=== PATIENT | female | born 1975 | race Caucasian/White ===

== ENCOUNTER 2022-02-24 13:45 | Outpatient (CLI) | payer MEDICAID, SELFPAY ==
[2022-02-24 17:54] LABS: Chloride* 104 mmol/L (96-114)
[2022-02-24 17:55] LABS: Potassium* 4.4 mmol/L (3.6-5.1); Sodium* 138 mmol/L (135-149)
[2022-02-24 17:57] LABS: Creatinine* 0.6 mg/dL (0.5-1.5); Estimated Glomerular Filt Rate 112 ml/min
[2022-02-24 17:58] LABS: Blood Urea Nitrogen* 11 mg/dL (5-24); Calcium* 9.4 mg/dL (8.4-10.6); Carbon Dioxide* 26 mmol/L (20-32); Glucose* 94 mg/dL (60-115)
[2022-02-25 09:57] LABS: SARS PCR* Negative SARS-CoV-2 (Negative)
== END 2022-02-24 13:46 | disposition home or self-care (01) ==
PROVIDERS: Visit Provider Nurse Practitioner Family
DX: Z01.818 Encounter for other preprocedural examination (principal)
CPT/HCPCS: 80048; 87635

== ENCOUNTER 2022-11-28 15:52 | Outpatient (CLI) | payer MEDICAID, SELFPAY | END 2022-11-28 15:53 | disposition home or self-care (01) | LOC: LONREF 15:53 | PROVIDERS: PCP Family Medicine; Visit Provider Family Medicine | DX: I10 Essential (primary) hypertension (principal) | CPT/HCPCS: 80048 ==

== ENCOUNTER 2023-09-25 11:07 | Outpatient (CLI) | payer MEDICAID, SELFPAY | END 2023-09-25 11:08 | disposition home or self-care (01) | PROVIDERS: PCP Family Medicine; Visit Provider Family Medicine | DX: Z01.818 Encounter for other preprocedural examination (principal); I10 Essential (primary) hypertension; Z13.29 Encounter for screening for other suspected endocrine disorder | CPT/HCPCS: 80048; 84439; 84443 ==

== ENCOUNTER 2024-04-03 15:10 | Outpatient (CLI) | payer MEDICAID, SELFPAY ==
--- OUTSIDE RECORDS SUMMARY | 2024-04-04 05:34 | XMS_ITS | Clinical Summary ---
Author Organization [facility] Address [place], [place] [address] Care Team Providers Care Credit Professional Name Role Phone Elo Roberson MD Unavailable Unavailable Deisi Abbott MD Unavailable [phone] Manpreet Sarabia MD Primary Care Provider [phone] Allergies Active Allergy Reactions Criticality Noted Date Comments Amoxicillin Hives 08/25/2016 Meperidine Itching,Nausea And Vomiting 06/27/2007 Penicillins Hives 04/08/2022 Tolerates cefazolin Scopolamine Itching 02/28/2022 Pt had bilateral eye burning ,not sure if it was from this but pain improved when patch was removed Varenicline Other - Describe In Comment Field 04/08/2022 nightmares Medications Medication Sig Dispensed Refills Start Date End Date Status diphenhydrAMINE (BENADRYL) 25 mg capsule Take 25 mg by mouth at bedtime if needed. Active clobetasol 0.05% TOPICAL (TEMOVATE) 0.05 % external solution Apply topically to affected area(s) 2 times daily if needed. Active dextroamphetamine-am phetamine (ADDERALL XR) 30 mg Extended-Release capsule Take 30 mg by mouth once daily. Q AM Active loratadine (Claritin) 10 mg tablet Take 10 mg by mouth once daily. Active acetaminophen (TYLENOL) 325 mg tabletIndications:St atus post total hip replacement, left Take 3 Tablets (975 mg) by mouth every 6 hours. Max acetaminophen dose: 4000mg in 24 hrs. 100 Tablet 1 3 Active acetaminophen/diphen hydramine (TYLENOL PM ORAL) Take 2 Tablets by mouth at bedtime. Active biotin 1 mg cap Take 1 Capsule (1,000 mcg) by mouth once daily. 0 3 Active medication order composer Take by mouth once daily. Women's multivitamin. 0 3 Active medication order composer Take by mouth once daily. Vitamin D3 gummy. 0 3 Active clindamycin (CLEOCIN) 300 mg capsuleIndications:A ftercare following surgery of the musculoskeletal system Take 2 tabs by mouth 1 hour prior to dental cleaning/procedur e or colonoscopy. 2 Capsule 3 3 Active furosemide (LASIX) 20 mg tablet Take 20 mg by mouth every morning. 3 Active Cosentyx, 2 Syringes, 150 mg/mL syringe Inject 300 mg subcutaneous every 4 weeks. 4 Active goserelin acetate (GOSERELIN SUBQ) Inject 3.6 mg subcutaneous every 12 weeks. Active tamoxifen (NOLVADEX) 10 mg tabletIndications:Ma lignant neoplasm of upper-outer quadrant of left breast in female, estrogen receptor positive (HC) TAKE ONE TABLET BY MOUTH DAILY 90 Tablet 3 4 Active celecoxib (CeleBREX) 200 mg capsuleIndications:P soriatic arthritis (HC) Take 1 Capsule (200 mg) by mouth two times daily with meals. 90 Capsule 1 4 Active oxybutynin XL (DITROPAN XL) 10 mg CR tabletIndications:Ho t flashes Take 1 Tablet (10 mg) by mouth once daily. For hot flashes 90 Tablet 1 4 Active rOPINIRole (REQUIP) 2 mg tabletIndications:Re stless legs Take 1 Tablet (2 mg) by mouth at bedtime. Restless Legs 90 Tablet 1 4 Active furosemide (Lasix) 20 mg tabletIndications:Ma lignant neoplasm of upper-outer quadrant of left breast in female, estrogen receptor positive (HC) Take 1 Tablet (20 mg) by mouth two times daily. 60 Tablet 1 4 Active anastrozole (ARIMIDEX) 1 mg tabletIndications:Ma lignant neoplasm of upper-outer quadrant of left breast in female, estrogen receptor positive (HC) Take 1 Tablet (1 mg) by mouth once daily. 90 Tablet 3 4 Active oxyCODONE-acetaminop hen (PERCOCET) 5-325 mg per tabletIndications:S/ P right knee arthroscopy Take 1-2 Tablets by mouth every 4 hours if needed for Pain. Max acetaminophen dose: 4000mg in 24 hrs. 30 Tablet 4 03/08/20 24 Discontinu ed(*Med complete/R egimen complete/L evel of care change) ondansetron (ZOFRAN ODT) 4 mg disintegrating tabletIndications:S/ P right knee arthroscopy Place 1 Tablet (4 mg) on the tongue every 8 hours if needed for Nausea/Vomiting. 30 Tablet 4 03/08/20 24 Discontinu ed(*Med complete/R egimen complete/L evel of care change) docusate (COLACE) 100 mg capsuleIndications:S /P right knee arthroscopy Take 1 Capsule (100 mg) by mouth 2 times daily if needed for Constipation. 30 Capsule 4 03/08/20 24 Discontinu ed(*Med complete/R egimen complete/L evel of care change) Active Problems Problem Noted Date Diagnosed Date S/P right knee arthroscopy 01/19/2024 Tear of medial meniscus of right knee 09/19/2023 s/p left total hip arthropla sty DOS: 12/16/[address] Snow 12/27/2022 Arthritis of left hip 12/16/2022 Medical cannabis use 04/26/2022 Psoriatic arthritis 04/08/2022 ADHD 04/08/2022 Hyponatremia 04/08/2022 Hypokalemia 04/08/2022 Cellulitis of chest wall 04/08/2022 Leucocytosis 04/08/2022 Port-A-Cath in place 04/08/2022 Constipation 04/08/2022 Restless legs 04/08/2022 Malignant neoplasm of upper- outer quadrant of left breast in female, estrogen receptor positive 02/03/2022 Cancer Staging:Clinical:Stage IA(cT1c, cN0, cM0, G2, ER+, IL+, HER2-) - Signed by Elo Roberson MD on 02/03/2022 Pathologic:Stage IA(pT1c, pN0, cM0, G3, ER+, IL+, HER2-) - Signed by Tequila Deng PA on 03/08/2022 Encounters Date Type Department Care Team Description 04/02/2024 Hospital/[facility] Telephone Encounter [facility] [place] [address] [place] [address] Zelda West RN Pre Procedure 03/08/2024 10:00 AM CDT - 03/08/2024 11:59 PM CDT Hospital Encounter [facility] [place] [address] [place] [address] Malignant neoplasm of upper-outer quadrant of left breast in female, estrogen receptor positive (HC) (Primary Dx) 03/08/2024 9:40 AM CDT Office Visit [facility] [place] [address] [address] Deisi Abbott MD Follow Up (Zoladex/) 03/08/2024 Travel 03/07/2024 [facility] Telephone Encounter [facility] [place] [address], [place] [address] Susanne Darby RN Pre Procedure (PVP) 01/22/2024 8:51 AM CDT - 01/22/2024 11:59 PM CDT Hospital Encounter [facility] [place] [address] [address] Visit for screening mammogram 01/22/2024 Travel 01/19/2024 1:00 PM CDT Office Visit [facility] [address] [place] [address] Dameon Morelos MD Surgical Followup (S/P right knee scope) 01/19/2024 Travel 01/09/2024 Refill [facility] [place] [address] [address] Alecia Aguiar, LEO Follow Up from Last 3 Months Family History Medical History Relation Name Comments Cancer-breast Paternal Aunt 1 Cancer-breast Paternal Aunt 2 breast Cancer-colon No Family History Cancer-ovarian No Family History Cancer-prostate No Family History Relation Name Status Comments Brother 1 Alive Brother 2 Alive Brother 3 Alive Father Alive Mother Alive Paternal Aunt 1 Paternal Aunt 2 Alive Social History Tobacco Use Types Packs/Day Years Used Date Smoking Tobacco: Former Cigarettes 0.5 15 0 12/12/2006 - 12/12/2021 Passive Smoke Exposure: Past Smokeless Tobacco: Never Tobacco Cessation:Counseling Given: Not Answered Alcohol Use Standard Drinks/Week Comments Yes 0 (1 standard drink = 0.6 oz pur e alcohol) 1 drink a month Social Connections Answer Date Recorded Frequency of Communication with Friends and Fami ly Not on file 03/10/2022 Sex and Gender Information Value Date Recorded Sex Assigned at Not on file Gender Identity Not on file Sexual Orientation Not on file Obstetrics History Para Term AB IAB SAB Ectopic Multiple Livin g Live Births 2 2 Date Outcome GA Total Labor Labor/2nd/3rd Weight Sex Type Anes PTL Shanta A1 A5 Name Clin Para Para Last Filed Vital Signs Vital Sign Reading Time Taken Comments Blood Pressure 132/73 03/08/2024 9:46 AM CDT Pulse 80 03/08/2024 9:46 AM CDT Temperature 36.9 ??C (98.4 ??F) 03/08/2024 9:46 AM CD T Respiratory Rate 16 12/15/2023 8:17 AM CDT Oxygen Saturation 100% 03/08/2024 9:46 AM CDT Inhaled Oxygen Concentration - - Weight 88.2 kg (194 lb 6.4 oz) 03/08/2024 9:46 A M CDT Height 162.6 cm (5' 4) 03/08/2024 9:46 AM CDT Body Mass Index 33.37 03/08/2024 9:46 AM CDT Plan of Treatment Upcoming Encounters Date Type Department Care Team (Late st Contact Info) Description 04/05/2024 8:00 AM CDT Appointment [facility] [address] [place] [address] 05/03/2024 8:00 AM CDT Appointment [facility] [address] [place] [address] 05/31/2024 8:20 AM CDT Office Visit [facility] [place] [address] [facility] [address] [place] [address] Deisi Abbott MD [address] [facility] [address], [id number] [place] [address] 05/31/2024 8:45 AM CDT Appointment [facility] [place] [address] [place] [address] Health Maintenance Due Date Last Done Comments COVID-19 vaccine series (#1) 1980 Pneumococcal series for age 6-64 (1 of 2 - PCV) 1981 Tdap 1986 Depression screening for age 12+ 1987 HIV for age 15-65 1990 Hepatitis C screening for ag e 18-79 1993 Tetanus booster 1995 Pap test for age 21-65 1996 Colonoscopy through age 75 2020 Lipids for age 45-75 2020 Influenza for age 9-49 04/14/2024 Mammogram for age 45-75 01/21/2025 01/22/20 24, 01/18/2023, 09/19/2022 BMI (ht and wt on same day) for age 18+ 03/08/2025 03/08/2024, 12/15/2023, 09/22/2023, Additional history exists Medical Devices Implanted Type Area Farm Loan Representative Device Identifier Shelf Expiration Date Model / Serial / Lot Port 8fr Powerport Clearvue Isp Micro Intrdcr - [id number] Implanted:Qty: 1 on 04/01/2022 by Daniel Johnson MD at [facility] Right: Chest [employer] 03/12/2023 [id number] / / [id number] Shell Hip 48d Trident Ii Clusterhole Tritanium - [id number] Implanted:Qty: 1 on 12/16/2022 by Dell Snow MD at [facility] Left: Hip [employer] 10/24/2027 [id number] / / [id number] Mdm Liner Cementless 38 Mm D Implanted:Qty: 1 on 12/16/2022 by Dell Snow MD at [facility] Left: Hip [employer] 08/22/2027 [id number] / / [id number] Screw Hip 6.5x30mm [employer] Low Profile Hex - [id number] Implanted:Qty: 1 on 12/16/2022 by Dell Snow MD at [facility] Left: Hip [employer] 11/21/2027 [id number] / / [id number] Inbsignia Hip Stem Offset Size 3 36 Mm; 101mm High Implanted:Qty: 1 on 12/16/2022 by Dell Sonw MD at [facility] Left: Hip [employer] 09/13/2027 [id number] / / [id number] Head Hip Od22mm +0 V40 Co Cr - [id number] Implanted:Qty: 1 on 12/16/2022 by Dell Snow MD at [facility] Left: Hip [employer] 11/05/2027 [id number] / / [id number] Insert Acetab Mdm X3 Sz D Trident Ii - [id number] Implanted:Qty: 1 on 12/16/2022 by Dell Snow MD at [facility] Left: Hip [employer] 03/27/2027 [id number] / / [id number] Procedures Procedure Name Priority Date/Time Associated Diagnosis Comments XR MAMMO SIVAN BILAT SCREEN Routine 01/22/2024 9:07 AM CDT Visit for screening mammogram from Last 3 Months Results * XR MAMMO SIVAN BILAT SCREEN (01/22/2024 9:07 AM CDT) Anatomical Region Laterality Modality BREASTS, Breast Left, Breast Right Bilateral Mammography Impressions 01/22/2024 9:48 AM CDT ??There is no radiographic evidence for malignancy. ??Recommend annual mammograms. MAMMOGRAM ASSESSMENT: ??ACR 2 Benign PATIENTS: You will also receive a letter with your examination results in an easy to read format. ??If you have questions about your results, please contact your referring provider. Narrative 01/22/2024 9:48 AM CDT For Patients: As a result of the 21st Century Cures Act, medical imaging exams and procedure reports are released immediately into your electronic medical record. You may view this report before your referring provider. If you have questions, please contact your health care provider. XR MAMMO SIVAN BILAT SCREEN [[id number]] CLINICAL HISTORY: ??This is an asymptomatic 48 y.o. patient. INDICATION FOR EXAM: Mammogram Screening. TECHNIQUE: CC & MLO views were obtained. ??This study was evaluated with the assistance of Computer-Aided Detection. Breast Tomosynthesis was used in interpretation. COMPARISON FILMS: Yes 01/18/23 [facility] 01/25/22 [facility] FINDINGS: ??The breasts are heterogeneously dense, which may obscure small masses. ??No suspicious masses or microcalcifications. ??There are post treatment changes of left breast. Manpreet Sarabia MD MAMMO from Last 3 Months Insurance Payer Benefit Plan / Group Subscriber ID Effective Dates Phone Address Type [facility] [place] CARE [id number] 2023-Presen t [address] [place] [address] COSMETIC PROCEDURES COSMETIC PROCEDURE HB ONLY [id number] Effective for all dates [address] [facility]. [facility]N: [facility] [id number] Advance Directives * Full Code (Latest Code Status on File) Date Activated Date Inactivated Comments 10/04/2023 12:04 PM 10/04/2023 7:48 PM Question Answer Comments Code Status Discussion: Unable to Assess Preferences, Provider to review later * Full Code Date Activated Date Inactivated Comments 12/16/2022 8:16 AM 12/16/2022 6:27 PM Question Answer Comments Code Status Discussion: Not Discussed * Full Code Date Activated Date Inactivated Comments 05/27/2022 1:30 PM 05/27/2022 7:34 PM Question Answer Comments Code Status Discussion: Reviewed Preferences * Full Code Date Activated Date Inactivated Comments 04/08/2022 9:25 PM 04/11/2022 4:16 PM Question Answer Comments Code Status Discussion: Reviewed Preferences * Full Code Date Activated Date Inactivated Comments 04/01/2022 6:15 AM 04/01/2022 2:20 PM Question Answer Comments Code Status Discussion: Unable to Assess Preferences, Provider to review later Care Teams Credit Professional Relationship Specialty Start Date End Date Manpreet Sarabia MD [address] [place] [address] PCP - General Family Practice 06/30/23 Elo Roberson MD Surgery - General 03/03/22 Deisi Abbott MD [address] [id number], [id number] [place] [address] Medical Oncologist Oncology 06/06/22
--- OUTSIDE RECORDS SUMMARY | 2024-04-04 05:35 | XMS_ITS | Clinical Summary ---
Author Organization [place] Address [address] [place] [id number] Care Team Providers Care [employer] Name Role Phone Anderson Sarabia MD Primary Care Provider Allergies Active Allergy Reactions Criticality Noted Date Comments Amoxicillin Hives 08/25/2016 Meperidine Dermatitis 08/25/2016 Medications Medication Sig Dispensed Refills Start Date End Date Status amphetamine-dextroamphetamine (ADDERALL XR) 30 MG per 24 hr capsule 10/25/2014 Active clobetasol propionate 0.05 % FOAM 10/15/2014 Active clobetasol (TEMOVATE) 0.05 % external solution 10/15/2014 Active Social History Tobacco Use Types Packs/Day Years Used Date Smoking Tobacco: Never Assessed Adolescent Education Answer Date Record ed Getting School Help Needed Not on file 05/21 Sex and Gender Information Value Date Recorded Sex Assigned at Not on file Gender Identity Not on file Sexual Orientation Not on file Last Filed Vital Signs Vital Sign Reading Time Taken Comments Blood Pressure 136/87 08/25/2016 2:36 PM CLINICAL IMMUNOLOGIST Pulse 107 08/25/2016 2:36 PM CLINICAL IMMUNOLOGIST Temperature 36.9 ??C (98.4 ??F) 08/25/2016 2:36 PM CS T Respiratory Rate - - Oxygen Saturation - - Inhaled Oxygen Concentration - - Weight 86.2 kg (190 lb) 08/25/2016 2:36 PM CLINICAL IMMUNOLOGIST Height - - Body Mass Index - - Plan of Treatment Health Maintenance Due Date Last Done Comments ADVANCE CARE PLANNING 1975 ANNUAL REVIEW OF HM ORDERS 1975 CT COLONOGRAPHY 1975 FIT 1975 FLEX SIG 1975 GLUCOSE 1975 MAMMO SCREENING 1975 YEARLY PREVENTIVE VISIT 1975 sDNA (Cologuard) 1975 COLONOSCOPY 1985 COLORECTAL CANCER SCREENING 1985 HIV SCREENING 1990 HEPATITIS C SCREENING 1993 HEPATITIS B IMMUNIZATION (1 of 3 - 19+ 3-dose series) 1994 PAP 1996 LIPID 2015 COVID-19 Vaccine ( - season) 2023 PHQ-2 (once per calendar year) 2023 INFLUENZA VACCINE (#1) 2024 , 07/15/2015, 06/20/2008, Additional history exists DTAP/TDAP/TD IMMUNIZATION (3 - Td or Tdap) 11/25/2031 11/24/2021, 08/05/2008 Pneumococcal Vaccine: Pediatrics (0 to 5 Years) and At-Risk Patients (6 to 64 Years) Aged Out 07/15/2015 No longer eligible based on patient's age to complete this topic HPV IMMUNIZATION Aged Out No longer e ligible based on patient's age to complete this topic IPV IMMUNIZATION Aged Out No longer e ligible based on patient's age to complete this topic MENINGITIS IMMUNIZATION Aged Out No l onger eligible based on patient's age to complete this topic RSV MONOCLONAL ANTIBODY Aged Out No l onger eligible based on patient's age to complete this topic Care Teams [employer] Relationship Specialty Start Date End Date Anderson Sarabia MD PCP - General Family Medicine 05/12/22
--- OUTSIDE RECORDS SUMMARY | 2024-04-04 05:35 | XMS_ITS | Data Portability ---
Author Organization [facility], [id number] Address [address] [address] Care Team Providers Care Tube Closing Machine Operator Name Role Phone BERKLEY PARIKH Primary Care Provider Assessment Encounter Date Assessment Date Assessment LastModified by Organization Details LastModified Time 11/12/2020 11/12/2020 45 yo female here for IUD exchange and annual exam - Encouraged breast self-awareness and recommend yearly mammogram. Last 2018 normal per patient. - Encouraged regular exercise. - Calcium and vitamin D intake discussed - pap smear: 2013 NILM, rpt done today. Has history of LSIL 2012 - colonoscopy @ 50 yo - contraception: IUD, exchanged today -menopausal symptoms- mild - has not had labwork done recently, completed today. - desires flu shot, had covid in 06/2020. [email or web address] Not available 11/17/2020 16:46:55 04/19/2022 04/19/2022 I spent a total of 30 minutes providing care for this patient including: preparing to see the patient, obtaining a medical history, completing a medically appropriate physical exam, completing documentation of visit information and plans in the EMR, counseling the patient and/or caregiver regarding her diagnosis, treatment options and follow up plans, as well as any necessary communication of subsequent test results to the patient, counseling the patient and/or caregiver regarding health maintenance recommendations, reviewing medical records, rosa Not available 04/20/2022 09:06:41 Plan of Treatment Reminders Order Date Submit Date Provider Last Modified By Organization Details Last Modified Time Details Appointments None recorded. Lab lipid panel, blood 2020 021 [facility], [address] [place], [address], 10:17:23 hemoglobin (Hb), fingerstick , blood 2020 021 [email or web address] [email or web address] [facility] , [address], [address], [place], [address], 18:00:21 thyroid cascade, serum 2020 [facility], [address] [place] [place], [address], 00:27:15 test, urine 2020 [email or web address] [email or web address] [facility] , [address] [place] [address], [address], [place], [address], 16:48:20 pap, LB 2020 021 [facility], [place] [place], [address], 10:17:25 unlisted lab - HPV high risk DNA with 16/18 genotyping 2020 021 [facility], [address] [place], [address], 10:17:25 FSH (follicle-s timulating hormone), serum 2020 021 [facility], [place] [place], [address], 10:17:24 prolactin, serum 2020 021 [facility], [place], [address], 00:27:15 CMP, serum or plasma 2020 021 [facility], [address] [place], [address], 00:27:14 hemoglobin A1c + average glucose, QN, blood 2020 021 [facility], [address] [place], [address], 10:17:24 Referral None recorded. Procedures None recorded. Surgeries None recorded. Imaging None recorded. Medication Orders None recorded. Patient TargetsNo targets recorded. Patient Instructions Encounter Date Encounter Id Patient Instructions Last Modified By Organization Details Last Modified Time 11/12/2020 [id number] 1. S/S of infection reviewed 2. Call for abdominal pain, fever, chills, or heavy bleeding 3. No unprotected x 1 week 4. Expect irregular bleeding 3-6 months 5. Handouts provided 6. RTC in one month for IUD string check or sooner/prn [email or web address] Not available 11/12/2020 16:58:22 Reason for Referral None Reported. Results Created Date Observation Date Name Description Value Unit Range Abnormal Flag LastModifiedBy Organization Detail LastModifiedTime 11/12/2020 hemog lobin (Hb), finge rstic k, blood fingerstick hemoglobin 14.5 g/dL 12.0-1 5.0 Not Available [id number] le_[address], [place], [address], 11/12/2020 16:01:20 11/13/1911/12/2020 CMP, serum or plasm a sodium 138 mmol/ L 136-14 5 Not Available [facility] [address] [place], [address], 11/13/2020 00:27:14 0411/12/2020 CMP, serum or plasm a potassium 4.2 mmol/ L 3.5-5. 1 Not Available [facility] [address], [address], 11/13/2020 00:27:14 11/13/1911/12/2020 CMP, serum or plasm a chloride 107 mmol/ L 98-112 Not Available [facility] [place], [address], 11/13/2020 00:27:14 11/13/1911/12/2020 CMP, serum or plasm a carbon dioxide 27 mmol/ L 21-32 Not Available [place] [address] [place], [address], 11/13/2020 00:27:14 11/13/1911/12/2020 CMP, serum or plasm a BUN (urea nitro) 9 mg/dL 7-24 Not Available [facility] [address] [place], [address], 11/13/2020 00:27:14 11/13/1911/12/2020 CMP, serum or plasm a creatinine 0.55 mg/dL 0.55-1 .02 Not Available [place] [address] [place] [place], [address], 11/13/2020 00:27:14 11/13/1911/12/2020 CMP, serum or plasm a est GFR (CKD-epi) >60 mL/mi n >60 Not Available [facility] [address] [place], [address], 11/13/2020 00:27:14 11/13/1911/12/2020 CMP, serum or plasm a est GFR if AM >60 mL/mi n >60 Not Available [place] [address] [address] [place], [place], [address], 11/13/2020 00:27:14 11/13/1911/12/2020 CMP, serum or plasm a glucose 97 mg/dL 74-106 Not Available [facility] [place], [address], 11/13/2020 00:27:14 11/13/1911/12/2020 CMP, serum or plasm a calcium, serum 8.6 mg/dL 8.5-10 .1 Not Available [facility] [address] [place], [address], 11/13/2020 00:27:14 11/13/1911/12/2020 CMP, serum or plasm a anion gap 4.0 mmol/ L 0.0-15 .0 Not Available [facility] [place], [address], 11/13/2020 00:27:14 11/13/1911/12/2020 CMP, serum or plasm a albumin 3.6 g/dL 3.4-5. 0 Not Available [place] [address] [place], [address], 11/13/2020 00:27:14 11/13/1911/12/2020 CMP, serum or plasm a bilirubin-to annette 0.4 mg/dL 0.2-1. 0 Not Available [facility] [place], [address], 11/13/2020 00:27:14 11/13/1911/12/2020 CMP, serum or plasm a alkaline P'tase 94 IU/L 45-117 Not Available [facility] [place], [address], 11/13/2020 00:27:14 11/13/19 21 11/12/2020 CMP, serum or plasm a protein total 6.7 g/dL 6.4-8. 2 Not Available [place] [address] [address] [place], [address], 11/13/2020 00:27:14 11/13/19 21 11/12/2020 CMP, serum or plasm a AST (SGOT) 8 IU/L 12-37 low Not Available [place] [address] [address] [place], [address], 11/13/2020 00:27:14 11/13/19 21 11/12/2020 CMP, serum or plasm a ALT (SGPT) 20 IU/L 12-68 Not Available [place] [address] [address] [place], [address], 11/13/2020 00:27:14 11/13/19 21 11/12/2020 prola ctin, serum prolactin, serum 7.6 NG/mL Not Available [place] [address] [place] [place], [address], 11/13/2020 00:27:15 11/13/19 21 11/12/2020 thyro id casca de, serum TSH 0.669 uIU/m L 0.358- 3.740 Not Available [place] [address] [address] [place], [address], 11/13/2020 00:27:15 11/13/19 21 11/12/2020 lipid panel , blood specimen type Not Available [place] [address] [address] [place], [address], 11/23/2020 10:17:23 11/13/19 21 11/12/2020 lipid panel , blood cholesterol 154 mg/dL <200 Not Available [place] [address] [place], [address], 11/23/2020 10:17:23 11/13/19 21 11/12/2020 lipid panel , blood triglyceride s profile 91 mg/dL <150 Not Available [place] [address] [address] [place] [place], [address], 11/23/2020 10:17:23 11/13/19 21 11/12/2020 lipid panel , blood LDL chol, calc 99 mg/dL <100 Not Available [facility] [address] [place], [address], 11/23/2020 10:17:23 11/13/19 21 11/12/2020 lipid panel , blood HDL cholesterol 37 mg/dL >40 low Not Available [facility] [place], [address], 11/23/2020 10:17:23 11/13/19 21 11/12/2020 lipid panel , blood chol/HDL ratio 4.2 0.0-4. 9 Not Available [facility] [place], [address], 11/23/2020 10:17:23 11/13/19 21 11/12/2020 FSH (foll icle- stimu latin g hormo ne), serum FSH, serum 4.8 mIU/m L Not Available [facility] [place], [address], 11/23/2020 10:17:24 11/13/19 21 11/12/2020 hemog lobin A1c + avera ge gluco se, QN, blood HbA1C (glycosolate d HGB) 5.2 % <5.7 Not Available [facility] [place], [address], 11/23/2020 10:17:24 11/13/19 21 11/12/2020 hemog lobin A1c + avera ge gluco se, QN, blood EAG (est. average glucose) 103 mg/dL <117 Not Available [facility] [address], [place], [address], 11/23/2020 10:17:24 11/13/19 21 11/12/2020 HPV DNA, high- risk HPV high risk type 16 Negati ve for HPV type 16. negati ve for HPV type 16. Not Available [facility] [address], [place], [address], 11/23/2020 10:17:25 11/13/19 21 11/12/2020 HPV DNA, high- risk HPV high risk type 18 Negati ve for HPV type 18. negati ve for HPV type 18. Not Available [facility] [address], [place], [address], 11/23/2020 10:17:25 11/13/19 21 11/12/2020 HPV DNA, high- risk HPV other high risk types Negati ve for other high risk HPV types. negati ve for other high risk HPV types. Not Available [facility] [address], [place], [address], 11/23/2020 10:17:25 11/13/19 21 11/12/2020 pap, LB case report See note Not Available [facility] [address], [place], [address], 11/23/2020 10:17:25 11/13/19 21 11/12/2020 pregn donna test, urine Unknown Analyte negati ve Not Available [id number] le_[address], [place], [address], 11/12/2020 16:33:25 Result Notes None recorded. Problems Name Status Onset Date Resolution Date Notes Provider Name and Address Organization Details Recorded Time Invasive carcinoma of breast Active Left Breast Jacki Mejia (TERMED) null, [facility] DEICER FINISHER 04/19/2022 09:52:56 Problem Notes None recorded. Procedures Surgical History Date Name Laterality Status Provider Name and Address Organization Details Recorded Time 04/19/20 22 IUD Removal Procedure Note ([place]) [place] [address] [address], [place], [address], [facility] 04/19/2022 13:10:56 11/13/19 21 IUD Removal & Insertion (same day) Procedure Note (Premier) [place] [address] [facility],[address], [place], [address], [facility] DEICER FINISHER 11/12/2020 16:57:45 11/13/19 21 Date of Last Pap Smear completed Caridad Galan null, [facility] DEICER FINISHER 11/24/2020 14:40:42 11/13/19 21 removal of intrauterine [place] [address], [place], [address], [facility] DEICER FINISHER 11/17/2020 13:40:00 08/14/19 19 Date of Last Mammogram completed Jarred Roque (TERMED) null, [facility] DEICER FINISHER 11/12/2020 15:53:03 09/11/19 13 [place] [address], [place], [address], [facility] DEICER FINISHER 11/17/2020 13:39:24 08/14/19 13 decompression of lumbar spine [place] [address], [place], [address], [facility] DEICER FINISHER 11/17/2020 13:40:33 07/31/20 12 insertion of intrauterine contraceptive [place] [address], [place], [address], [facility] 11/17/2020 13:39:38 08/14/19 05 [place]olecyst[place] [address], [place], [address], [facility] FINISH[facility] 11/17/2020 13:40:51 dilation of cervix uteri and curettage for [place] [address] [address], [place], [address], [facility] DEIC[facility] FINISHER 11/17/2020 16:37:59 Imaging Results None recorded. Procedure Notes None recorded. Medical Equipment None Reported. Allergies Allergen ID Allergen Name Allergen Category Reaction Reaction Severity Criticality Documentation Date Start Date Code Code System Note Provider Name and Address Organization Details Recorded Time Medicinal product containin g penicilli n and acting as antibacte rial agent (product) medicatio n hives Not available Not available 11/12/2020 68235 05 [place] [address], [place], [address], [facility] DEICER FINISHER 1 15:37:48 [id number] Demerol medicatio n itching Not available Not available 11/12/2020 88249 1 [place] [address] [address], [place], [address], [facility] DEICER FINISHER 1 15:37:59 [id number] Chantix medicatio n other Not available Not available 11/17/2020 03774 0 RxNorm psych osis due [place] [address] [address], [place], [address], [facility] DEICER FINISHER 1 15:38:30 Medications Name Sig Start Date Stop Date Status Note LastModified by Organization Details LastModified Time cefprozil 500 mg tablet TAKE 1 TABLET BY MOUTH TWICE DAILY FOR 10 DAYS 04/19 completed Not Available Not Available Not Available ropinirole 1 mg tablet TAKE TWO TABLETS BY MOUTH AT BEDTIME active Not Available Not Available No t Available clindamycin HCl 300 mg capsule TAKE ONE CAPSULE BY MOUTH THREE TIMES DAILY active Not Available Not Available No t Available trazodone 50 mg tablet active Not Available Not Available Not Available ibuprofen 800 mg tablet TAKE 1 TABLET BY MOUTH EVERY 8 HOURS FOR PAIN 04/19 completed Not Available Not Available Not Available hydrocodone 5 mg-acetamin ophen 325 mg tablet TAKE 1 OR 2 TABLETS BY MOUTH EVERY 6 HOURS NEEDED 04/19 completed Not Available Not Available Not Available ondansetron HCl 8 mg tablet TAKE ONE TABLET BY MOUTH EVERY EIGHT HOURS NEEDED FOR NAUSEA / vomiting active Not Available Not Available No t Available prednisone 20 mg tablet TAKE ONE TABLET BY MOUTH TWICE DAILY active Not Available Not Available No t Available acetaminoph en 300 mg-codeine 30 mg tablet TAKE ONE TABLET BY MOUTH EVERY FOUR TO SIX HOURS NEEDED FOR PAIN 04/19 completed Not Available Not Available Not Available prochlorper azine maleate 10 mg tablet TAKE ONE TABLET BY MOUTH EVERY SIX HOURS NEEDED FOR NAUSEA / vomiting active Not Available Not Available No t Available sulfamethox azole 800 mg-trimetho prim 160 mg tablet TAKE 1 TABLET BY MOUTH TWICE DAILY FOR 7 DAYS 04/19 completed Not Available Not Available Not Available phentermine 30 mg capsule TAKE 1 CAPSULE BY MOUTH DAILY 04/19 completed Not Available Not Available Not Available lidocaine-p rilocaine 2.5 %-2.5 % topical cream Apply pea sized amount to port site 60 minutes prior to clinic visit. Do not fully rub in. Cover with a clear dressing. active Not Available Not Available No t Available oxycodone-a cetaminophe n 5 mg-325 mg tablet 04/19 completed Not Available Not Available Not Available Adderall XR 30 mg capsule,ext ended release TAKE 1 CAPSULE BY MOUTH EVERY MORNING active Not Available Not Available No t Available cephalexin 500 mg capsule 04/19 completed Not Available Not Available Not Available dexamethaso ne 4 mg tablet Take 2 tablets by mouth in the morning and evening the day before, day of, and day after chemother apy. Take with meals. active Not Available Not Available No t Available clobetasol 0.05 % topical foam APPLY TOPICALLY TO AFFECTED AREA(S) TWICE A DAY FOR 1 WEEK NEEDED 04/19 completed Not Available Not Available Not Available lorazepam 1 mg tablet TAKE ONE TABLET BY MOUTH AT BEDTIME NEEDED active Not Available Not Available No t Available clobetasol 0.05 % scalp solution APPLY TO THE SCALP TWICE DAILY FOR 2 WEEKS THEN USE NEEDED 04/19 completed Not Available Not Available Not Available oxycodone 5 mg tablet Take 1 Tablet by mouth every 4 hours if needed for Pain. 04/19 completed Not Available Not Available Not Available Senexon-S 8.6 mg-50 mg tablet active Not Available Not Available No t Available Stelara 45 mg/0.5 mL subcutaneou s syringe active Not Available Not Available No t Available Vitals Date Recorded Body height Body mass index (BMI) Body weight Systolic blood pressure Diastolic blood pressure Provider Name and Address Organization Details Last Updated DateTime 04/19/2022 162.56 cm 32.4 kg/m2 70541.96 g 138 mm[Hg] 80 mm[Hg] Jacki Mejia (TERMED) [facility] DEICER FINISHER 2 12:46:56 Date Recorded Body height Body mass index (BMI) Body weight Systolic blood pressure Diastolic blood pressure Provider Name and Address Organization Details Last Updated DateTime 11/12/2020 162.56 cm 31.3 kg/m2 74273.97 g 138 mm[Hg] 92 mm[Hg] Jarred Roque (TERMED) [facility] DEICER FINISHER 1 16:02:01 Social History Question Answer Notes LastModified by Organizat ion Details LastModified Time Tobacco Smoking Status Current [place] [address] [facility],[address], [place], [address], [facility] DEICER FINISHER 11/17/2020 13:41:57 What Is Your Level Of Alcohol Consumption? Occasional One Q Couple Of Months Information not available 11/17/2020 What Is Your Level Of Caffeine Consumption? 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 Yes Information not available 11/17/2020 How Much Tobacco Do You Smoke? 0.5 PPD Information not available 11/17/2020 Sex: Unknown Functional Status Question Answer Note LastModified by Organizat ion Details LastModified Time What is your exercise level? Occasional Information not available 11/12/2020 Mental Status None recorded. Family History Relationship Description Onset Age of this Age Resolved Age Notes Paternal Aunt Malignant tumor of breast 55 Paternal Grandfather Acute stroke Paternal Grandfather Heart disease Brother Hypertensive disorder 35 Medical History Condition Response Neurology-Other Psych- Anxiety Disorder Y Psych- Depression Y Dermatology-Eczema/Psoriasis Y Ortho-Other ID-Other Ortho- Arthritis Y Psych- ADD Gynecological History Statement/Question Response Sexually Active Y History of Abnormal PAP Y Age at Menarche: 15 HPV Test Negative Date of Last Mammogram 08/14/2018 Date of LMP 08/15/2008 History of Sexually Transmitted Infectio n Y Current Control Method IUD Menstrual Cycle Length (days) Date of Last Pap Smear 11/12/2020 History of Dysmenorrhea N Obstetrics History GPAL:G 6 P 2 0 4 2 Type Value Full Term 2 Induced 1 Spontaneous 3 Living 2 Total 6 Immunizations Vaccine Type Date Status Provider Name and Address Organization Details Recorded Time Influenza, split virus, quadrivalent, PF 11/12/2020 completed BERT Shirley DEICER FINISHER 11/12/2020 17:16:23 Past Encounters Encounter ID Performer Location Encounter Start Date Encounter Closed Date Diagnosis/Indication Diagnosis SNOMED-CT Code [id number] AURELIANO DASH MD [id number] [facility] [address] [facility] [address] [place] [address] 11/12/2020 15:35:15 11/12/2020 16:53:50 Gynecologic examination 54766181 Menopausal symptom 78276 002 Replacemen t of intrauterine contraceptive device 45098685 Screening for malignant neoplasm of cervix 130532032 Hyperlipid emia screening 955753320 Diabetes m ellitus screening 797476990 Body mass index 30+ - obesity 846763663 Thyroid di sorder screening 986722165 Galactorrh ea not associated with childbirth 04058427 Administra tion of influenza vaccine 55255653 [id number] ZITA BLANTON, DO [id number] [facility] [address] [facility] [address], [address] [place] [address] 04/19/2022 12:31:04 04/20/2022 10:06:43 Removal of intrauterine device 41373976 Health Concerns Section Related Observation LastModified by Organization Detai ls LastModified Time None Recorded Concern Status LastModified by Organization Details LastModified Time None Recorded Advance Directives Directive None Recorded Payers Encounter Date Sequence Insurance Name Policy Number Policy [place] Covered Member ID Burciaga Member ID Guarantor Name 11/12/2020 1 [facility] [id number] Sarah Franz [id number] Sarah Cabaickson 04/19/2022 1 [employer] [id number] Sarah Orantesdrickson [id number] Sarah Franz Notes Date Note Type Note Provider Name and Address Organization Details Recorded Time 11/12/2020 text/html HPI Notes: Jeison ware Premenopausal (Premier) Reported by patient. Patient Relationship To Practice: former patient returning Current Medical History: active medical problems stable Relevant Family History: family history of breast cancer; no family history of ovarian cancer; no family history of uterine cancer; no family history of colon cancer; no family history of blood clots/DVT Menstrual History: Frequency of Menses: rare Contraceptive Method: Current Method Used: levonorgestrel containing IUD--5 year (, 2011, not using backup contraception); satisfied Sexually Active: Yes: new partner STI Screen: declines Health/Prevention: Exercise: yes Sarah presents for IUD removal and insertion and annual exam. She notes that she has not had periods since 2008, has had a mirena since then. She is unsure if she has gone through menopause. She is having night sweats, insomnia and feels that she smells off and different. She denies vaginal dryness or mood changes. She has been a smoker for a long time and has no desire to quit. She has previously tried chantix and patches. She was last sexually active on monday and did not use a condom. SHe has no issues with intercourse. 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 She has never had a workup and [place] [address] [facility],[address], [place], [address], [facility] Premier DEICER FINISHER 11/17/2020 16:47:20 04/19/2022 text/html HPI Notes: here for IUD removal due to breast cancer ER/[place] + We had a long discussion about the need to remove the device and what the implications of chemo and radiation are. her concerns are related to bleeding issues and the possibility of oophorectomy if recurrence happens. we discussed paragard, ablation and other non hormonal BC options/ [place] [address] [facility],[address], [place], [address], [facility] Premier DEICER FINISHER 04/20/2022 09:09:46 OBGyn Episode Ob Episode Information Episode Created Date Number of Fetuses Patient Bloodtype Patient rh Status Prepregnancy Weight lbs Domestic Partner Domestic Partner Phone Father Name Digital Watch Assembler Status 11/13/19 21 1 CLOSED Fetus Data First Name Last Name Admitted to NICU Weight (g) Sex Living Outcome Pediatric Complications Fetus ID Race Codes Race Delivery Type 3486.76 1704 M Full Term [id number] Lonnie Calculation Initial Lonnie Date Initial Exam Date Initial Exam Provider Initial Ultrasound Date Last Menstrual Period Date Ultra Sound Weeks Gestation 0 Eighteen To Twenty Week Lonnie Update Ultra Sound Date Fundal Height At Umbil Quickening Date Ultra Sound Latest Weeks Gestation Final Lonnie Confirmed By Final Lonnie Confirmed Date Final Lonnie Date Ultra Sound Latest Days Gestation 0 0 Menstrual History Last Menstrual Date Menses Monthly On Bcp Conception Prior Menses Frequency Hcg Plus Date Menarche Onset Age Delivery Information Delivery Date Delivery Type Labor Anesthesia Weeks Gestation Incision Type Labor Labor Length Hrs Delivered By Post Complications Tubal Sterilization Discharge Date Comments 1 [facility] denae [facility] d Discharge Information Feeding Method Contraceptive Method Maternal HG B and HCT Levels Ob Episode Information Episode Created Date Number of Fetuses Patient Bloodtype Patient rh Status Prepregnancy Weight lbs Domestic Partner Domestic Partner Phone Father Name Digital Watch Assembler Status 11/13/19 21 1 CLOSED Fetus Data First Name Last Name Admitted to NICU Weight (g) Sex Living Outcome Pediatric Complications Fetus ID Race Codes Race Delivery Type [id number] F Full Term [id number] Lonnie Calculation Initial Lonnie Date Initial Exam Date Initial Exam Provider Initial Ultrasound Date Last Menstrual Period Date Ultra Sound Weeks Gestation 0 Eighteen To Twenty Week Lonnie Update Ultra Sound Date Fundal Height At Umbil Quickening Date Ultra Sound Latest Weeks Gestation Final Lonnie Confirmed By Final Lonnie Confirmed Date Final Lonnie Date Ultra Sound Latest Days Gestation 0 0 Menstrual History Last Menstrual Date Menses Monthly On Bcp Conception Prior Menses Frequency Hcg Plus Date Menarche Onset Age Delivery Information Delivery Date Delivery Type Labor Anesthesia Weeks Gestation Incision Type Labor Labor Length Hrs Delivered By Post Complications Tubal Sterilization Discharge Date Comments 4 None 40 depressi o n during , Dr. Zavala Discharge Information Feeding Method Contraceptive Method Maternal HG B and HCT Levels
--- OUTSIDE RECORDS SUMMARY | 2024-04-04 05:35 | XMS_ITS | Referral Summary ---
Author Organization [facility] Address [address] [place] [id number] Care Team Providers Care Electronic Parts Salesperson Name Role Phone Anderson Sarabia MD Primary Care Provider [phone] Allergies Active Allergy Reactions Criticality Noted Date [...] Comments Blood Pressure 136/87 08/25/2016 2:36 PM [employer]ON [employer]ER Pulse 107 08/25/2016 2:36 PM [employer] Temperature 36.9 ??C (98.4 ??F) 08/25/2016 2:36 PM CS T Respiratory Rate - - Oxygen Saturation - - Inhaled Oxygen Concentration - - Weight 86.2 kg (190 lb) 08/25/2016 2:36 PM [employer]ON [employer] Height - - Body Mass Index - - Plan of Treatment Not on file Care Teams Electronic Parts Salesperson Relationship Specialty Start Date End Date Anderson Sarabia MD PCP - General Family Medicine 05/12/22
== END 2024-04-03 15:11 | disposition home or self-care (01) ==
LOC: NFLDREF 04-04 05:32
PROVIDERS: PCP Family Medicine; Referring Provider Family Medicine; Visit Provider Physician Assistant
DX: R39.15 Urgency of urination (principal); R82.90 Unspecified abnormal findings in urine
CPT/HCPCS: 87086; 87186

== ENCOUNTER 2024-10-30 23:47 | Outpatient (CLI) | payer BC, SELFPAY | END 2024-10-30 23:48 | disposition home or self-care (01) | LOC: AMB 10-31 08:50 | PROVIDERS: PCP Family Medicine; Visit Provider Family Medicine | DX: R07.9 Chest pain, unspecified (principal) | CPT/HCPCS: A0998 ==